=== PATIENT | male | born 1950 ===

== ENCOUNTER 2022-04-18 07:19 | Outpatient (CLI) | payer OTHER | END 2022-04-18 07:54 | disposition home or self-care (01) | LOC: NUCLEAR 07:19 | PROVIDERS: ATTEND Internal Medicine Cardiovascular Disease | DX: I25.9 Chronic ischemic heart disease, unspecified (principal) | CPT/HCPCS: 78452; 93017; A9500 ==

== ENCOUNTER 2023-10-10 07:55 | Outpatient (CLI) | payer OTHER | END 2023-10-10 07:56 | disposition home or self-care (01) | LOC: NUCLEAR 07:55 | PROVIDERS: ATTEND Internal Medicine Cardiovascular Disease | DX: I73.9 Peripheral vascular disease, unspecified (principal) ==